=== PATIENT | female | born 1965 | race Caucasian/White ===

== ENCOUNTER 2019-04-18 14:18 | Outpatient (CLI) | payer OTHER, SELFPAY ==
--- NOTE | 2019-04-18 14:29 | MM_ITS ---
WS: [id number] RIGHT DIGITAL MAMMOGRAPHY WITH CAD CLINICAL INFORMATION: 6 MO F/U RT BREAST CYST COMPARISON: August 16, 2018 and multiple prior examinations dating back to June 09, 2017 TECHNIQUE: 5 views of the right breast were obtained. FINDINGS: Scattered fibroglandular densities of the right breast. Again seen is the circumscribed 8 mm nodule i nferior right breast. This is unchanged. Ultrasound is pending. ULTRASOUND BREAST RIGHT TECHNIQUE: Ultrasound right breast focused area of concern. CLINICAL INFORMATION: 6 MO F/U RT BREAST CYST FINDINGS: Again seen is the cluster of cysts and microcysts at the 5:00 position right breast 3 cm from the nip ple. This has a benign appearance and is stable since June 09, 2017. No pathologic lesions to target for biopsy. Recommend returning to annual screening mammography. MM/[place] [id number] IMPRESSION: BI-RADS: 2-Benign FOLLOW UP: 1 Year Follow-up Recommend return to annual screening mammography.
== END 2019-04-18 14:19 | disposition home or self-care (01) ==
LOC: RADSHAW 14:22
PROVIDERS: PCP Nurse Practitioner Family
DX: N60.01 Solitary cyst of right breast (principal)
CPT/HCPCS: 76642; 77065

== ENCOUNTER 2019-09-12 17:33 | Outpatient (CLI) | payer SELFPAY ==
[2019-09-12 20:08] LABS: Alanine Aminotransferase 26 U/L (0-33); Albumin Level 4.3 g/dL (3.5-5.2); Alkaline Phosphatase 74 IU/L (35-105); Anion Gap 19.9 (5-19); Aspartate Amino Transferase 19 U/L (0-32); Blood Urea Nitrogen 18 mg/dL (6-20); Calcium 9.8 mg/dL (8.5-10.5); Carbon Dioxide 21 mmol/L (22-29); Chloride 99 mmol/L (98-107); Globulin 2.2 g/dL (1.3-4.6); Glomerular Filtration Rate 103.8 mL/min (90-130); Glucose 83 mg/dL (65-115); Osmolality Calculated 278 mOsm/kg (285-295); Potassium 3.9 mmol/L (3.5-5.1); Sodium 136 mmol/L (136-145); Total Bilirubin 0.2 mg/dL (0.15-1.2); Total Protein 6.5 g/dL (6.6-8.7)
[2019-09-12 21:58] LABS: Estmated Average Glucose 137; Hemoglobin A1C 6.4 % (4.0-6.0)
== END 2019-09-12 17:34 | disposition home or self-care (01) ==
PROVIDERS: PCP Nurse Practitioner Family; Visit Provider General Practice
DX: E11.9 Type 2 diabetes mellitus without complications (principal)
CPT/HCPCS: 80053; 83036

== ENCOUNTER 2020-12-31 17:36 | Outpatient (CLI) | payer MEDICAID, SELFPAY ==
[2020-12-31 18:36] LABS: Basophils # 0.1 10^3/uL (0.0-0.1); Basophils % 0.5 %; Eosinophils # 0.2 10^3/uL (0.0-0.8); Eosinophils % 1.5 %; Hematocrit 44.1 % (37.0-47.0); Lymphocytes # 4.1 10^3/uL (0.8-4.8); Lymphocytes % 28.4 %; Mean Corpuscular Hemoglobin 33.3 pg (28.0-34.0); Mean Corpuscular Volume 97.8 fl (81-99); Mean Platelet Volume 11.9 fL (7.4-10.4); Monocytes # 0.7 10^3/uL (0.2-0.9); Monocytes % 4.9 %; Neutrophils # 9.18 10^3/uL (1.8-7.7); Neutrophils % 63.9 %; Nucleated Red Blood Cells % 0 %; Platelet Count 229 10^3/cmm (130-400); Red Blood Count 4.51 10^6/uL (4.1-5.3); White Blood Count 14.4 10^3/uL (4.0-10.0)
[2020-12-31 19:00] LABS: Alanine Aminotransferase 38 U/L (0-33); Albumin Level 4.2 g/dL (3.5-5.2); Alkaline Phosphatase 103 IU/L (35-105); Aspartate Amino Transferase 25 U/L (0-32); Blood Urea Nitrogen 13 mg/dL (6-20); Calcium 9.4 mg/dL (8.5-10.5); Carbon Dioxide 20 mmol/L (22-29); Chloride 99 mmol/L (98-107); Chol HDL Ratio 5.24 mg/dL (0.0-4.40); Cholesterol 178 mg/dL (0-200); Globulin 2.2 g/dL (1.3-4.6); Glomerular Filtration Rate 103.4 mL/min (90-130); Glucose 162 mg/dL (65-115); HDL Cholesterol 34 mg/dL (60-100); LDL Cholesterol Calculated 73 mg/dL (50-129); LDL HDL Ratio 2.15 RATIO (0.00-3.22); Osmolality Calculated 282 mOsm/kg (285-295); Sodium 134 mmol/L (136-145); Total Bilirubin 0.2 mg/dL (0.15-1.2); Total Protein 6.4 g/dL (6.6-8.7); Triglycerides 356 mg/dL (0-150)
[2020-12-31 22:14] LABS: Estmated Average Glucose 148; Hemoglobin A1C 6.8 % (4.0-6.0)
== END 2020-12-31 17:37 | disposition home or self-care (01) ==
LOC: LAB 17:36
PROVIDERS: PCP General Practice; Visit Provider General Practice
DX: Z01.89 Encounter for other specified special examinations (principal)
CPT/HCPCS: 80053; 80061; 83036; 85025

== ENCOUNTER → 2021-03-03 08:56 | Outpatient (BNVA) | payer MEDICAID, SELFPAY | PROVIDERS: PCP Family Medicine Adult Medicine; Visit Provider Family Medicine Adult Medicine | DX: E11.69 Type 2 diabetes mellitus with other specified complication (principal); Z13.6 Encounter for screening for cardiovascular disorders; I10 Essential (primary) hypertension; E78.5 Hyperlipidemia, unspecified; E11.621 Type 2 diabetes mellitus with foot ulcer; L97.509 Non-pressure chronic ulcer of other part of unspecified foot with unspecified severity | CPT/HCPCS: 80053; 80061; 83036; 84443; 85025 ==

== ENCOUNTER → 2021-03-04 08:09 | Outpatient (BNVA) | payer MEDICAID, SELFPAY | PROVIDERS: PCP Family Medicine Adult Medicine; Referring Provider Family Medicine Adult Medicine; Visit Provider Podiatrist Foot & Ankle Surgery | DX: E11.621 Type 2 diabetes mellitus with foot ulcer (principal); L97.509 Non-pressure chronic ulcer of other part of unspecified foot with unspecified severity; M77.32 Calcaneal spur, left foot; Z79.4 Long term (current) use of insulin | CPT/HCPCS: 73630 ==

== ENCOUNTER → 2021-06-01 15:17 | Outpatient (BNVA) | payer MEDICAID, SELFPAY | PROVIDERS: PCP Family Medicine Adult Medicine; Visit Provider Family Medicine Adult Medicine | DX: I10 Essential (primary) hypertension (principal); E11.69 Type 2 diabetes mellitus with other specified complication; E78.5 Hyperlipidemia, unspecified; E11.621 Type 2 diabetes mellitus with foot ulcer; L97.509 Non-pressure chronic ulcer of other part of unspecified foot with unspecified severity; J44.9 Chronic obstructive pulmonary disease, unspecified; E11.40 Type 2 diabetes mellitus with diabetic neuropathy, unspecified | CPT/HCPCS: 83036 ==

== ENCOUNTER → 2021-07-20 14:03 | Outpatient (BNVA) | payer MEDICAID, SELFPAY | PROVIDERS: PCP Family Medicine Adult Medicine; Visit Provider Podiatrist Foot & Ankle Surgery | DX: E11.621 Type 2 diabetes mellitus with foot ulcer (principal); L97.521 Non-pressure chronic ulcer of other part of left foot limited to breakdown of skin; E11.40 Type 2 diabetes mellitus with diabetic neuropathy, unspecified; L60.3 Nail dystrophy; M20.11 Hallux valgus (acquired), right foot; M20.12 Hallux valgus (acquired), left foot; M20.41 Other hammer toe(s) (acquired), right foot; M20.42 Other hammer toe(s) (acquired), left foot; Q82.8 Other specified congenital malformations of skin | CPT/HCPCS: 99213; 99214 ==

== ENCOUNTER → 2021-09-08 07:37 | Outpatient (BNVA) | payer MEDICAID, SELFPAY | PROVIDERS: PCP Family Medicine Adult Medicine; Visit Provider Family Medicine Adult Medicine | DX: J44.9 Chronic obstructive pulmonary disease, unspecified (principal); I10 Essential (primary) hypertension; E11.69 Type 2 diabetes mellitus with other specified complication; E78.5 Hyperlipidemia, unspecified; E11.9 Type 2 diabetes mellitus without complications; K21.9 Gastro-esophageal reflux disease without esophagitis; G25.81 Restless legs syndrome | CPT/HCPCS: 80053; 80061; 83036; 83735; 84443; 85025 ==

== ENCOUNTER → 2021-10-19 13:11 | Outpatient (BNVA) | payer MEDICAID, SELFPAY | PROVIDERS: PCP Family Medicine Adult Medicine; Visit Provider Podiatrist Foot & Ankle Surgery | DX: M79.671 Pain in right foot (principal); M79.672 Pain in left foot; E11.40 Type 2 diabetes mellitus with diabetic neuropathy, unspecified; L60.3 Nail dystrophy; M20.11 Hallux valgus (acquired), right foot; M20.12 Hallux valgus (acquired), left foot; M20.41 Other hammer toe(s) (acquired), right foot; M20.42 Other hammer toe(s) (acquired), left foot; Z79.84 Long term (current) use of oral hypoglycemic drugs | CPT/HCPCS: 99214 ==

== ENCOUNTER 2021-12-29 10:27 | Emergency (ER) | payer MEDICAID, SELFPAY ==
[2021-12-29 11:14] VITALS: BP 129/77; PULSE 86; RESP 18; TEMP 36.3; O2SAT 97; BMI 30.8
--- NOTE | 2021-12-29 11:18 | ECG_ITS ---
[facility] Test Date: 2021-12-29 Pat Name: Maribell Hamm Department: Room: Gender: Female Survey Superintendent: : 1965 Requested By: Cassia Adams Order Number: [id number] Grey MD: Shivani Kurtz M.D. Measurements Intervals [place] Rate: 85 P: -23 [place]: 165 QRS: 32 QRSD: 96 T: 54 QT: 357 QTc: 426 Interpretive Statements SINUS RHYTHM SEPTAL MYOCARDIAL INFARCTION , PROBABLY OLD [40+ ms Q WAVE IN V1/V2] No previous ECG available for comparison Electronically Signed On 12-30-2021 12:56:14 CDT by Shivani Kurtz M.D. [email or web address], cancer [id number]
[2021-12-29 12:15] LABS: Basophils # 0.1 10^3/uL (0.0-0.1); Basophils % 0.5 %; Eosinophils # 0.2 10^3/uL (0.0-0.8); Eosinophils % 1.5 %; Hematocrit 45.6 % (37.0-47.0); Hemoglobin 15.4 g/dL (11.5-15.3); Lymphocytes # 4.3 10^3/uL (0.8-4.8); Mean Corpuscular HGB Conc 33.8 g/dL (30.0-36.0); Mean Corpuscular Hemoglobin 32.5 pg (28.0-34.0); Mean Corpuscular Volume 96.2 fl (81-99); Mean Platelet Volume 11.5 fL (7.4-10.4); Monocytes # 0.9 10^3/uL (0.2-0.9); Neutrophils # 9.22 10^3/uL (1.8-7.7); Neutrophils % 62.3 %; Nucleated Red Blood Cells % 0 %; Platelet Count 257 10^3/cmm (130-400); Red Blood Count 4.74 10^6/uL (4.1-5.3); Red Cell Distribution Width 13.2 % (12.1-15.1); White Blood Count 14.8 10^3/uL (4.0-10.0)
--- NOTE | 2021-12-29 12:20 | PC.NURSE ---
Patient rounded on in waiting room. Patient denies changes and remains stable. Patient has no further needs at this time.
[2021-12-29 12:34] LABS: Lactate (Lactic Acid level) 1.8 mmol/L (0.5-2.2)
[2021-12-29 12:40] LABS: Alanine Aminotransferase 39 U/L (0-33); Alkaline Phosphatase 109 U/L (35-105); Aspartate Amino Transferase 21 U/L (0-32); Blood Urea Nitrogen 11 mg/dL (6-20); Calcium 9.8 mg/dL (8.5-10.5); Carbon Dioxide 23 mmol/L (22-29); Chloride 102 mmol/L (98-107); Globulin 3.1 g/dL (1.3-4.6); Glucose 172 mg/dL (65-115); Lipase 49 U/L (13-60); Osmolality Calculated 287 mOsm/kg (285-295); Sodium 137 mmol/L (136-145); Total Bilirubin 0.2 mg/dL (0.15-1.2); Total Protein 7.1 g/dL (6.6-8.7)
[2021-12-29 12:41] LABS: Anion Gap 16.2 (5-19); Potassium 4.2 mmol/L (3.5-5.1)
[2021-12-29 13:47] LABS: Add Urine Microscopic? YES; Bilirubin Urine Neg (Negative); Blood Urine Neg (Negative); Glucose Urine UA Norm (Normal); Ketones Urine Negative (Negative); Leukocyte Esterase Urine Trace (Negative); Nitrate Urine Negative (Negative); Protein Urine Neg (Negative); RBC Urine 0-4 /hpf (0-2); Specific Gravity, Urine 1.015 (1.005-1.030); Sulfosalicylic Acid Urine Negative (Negative); Urine Appearance Clear (CLEAR); Urine Color Yellow (Yellow); Urobilinogen Urine Norm (Negative); WBC Urine 0-4 /hpf (0-5); pH Urine 6 (5-7)
[2021-12-29 13:48] LABS: Bacteria Urine 1+ /hpf; Mucus Urine 2+ /hpf
--- NOTE | 2021-12-29 15:16 | US_ITS ---
WS: [id number] ULTRASOUND ABDOMEN LIMITED CLINICAL INFORMATION: RUQ abdominal pain, n/v/d, worsens after eating COMPARISON: None. FINDINGS: Liver Size: Enlarged Craniocaudal length: 17.4 cm. Echogenicity: Coarse Surface nodularity: None. Mass (size and location): None. Bile ducts Intrahepatic ducts: Normal. Common bile duct diameter: 1.5 cm. Gallbladder Prior cholecystectomy. Pancreas Pancreas is partially obscured by bowel gas. Echogenic pancreas nonspecific but can be seen with panc reatitis or fatty replacement. Right kidney: Normal. Hydronephrosis: None. Size: 11.3 cm x 5.3 cm x 4.8 cm. Abdominal aorta and IVC Visualized portions are normal. Ascites: None. US/US gall bladder [id number] IMPRESSION: 1. Hepatomegaly with diffuse fatty infiltration. 2. Partially obscured Echogenic pancreas is nonspecific but can be seen with p ancreatitis or fatty replacement. Recommend correlation with pancreatic functio n studies. 3. Prior remote cholecystectomy. 4. Prominent common bile duct measuring 15 mm. No visualized proximal choledoc holithiasis. This can be followed up with MRCP if clinical concern for biliary obstruction. 5. No hydronephrosis in RIGHT kidney.
--- NOTE | 2021-12-29 15:23 | ED_ITS ---
Documented by User: CYRIL Díaz 12/30/21 07:10 HPI - Abdominal Pain General: Chief Complaint: Abdominal Pain Stated Complaint: pain in stomach Time Seen by Provider: 12/29/21 15:02 History of Present Illness: Patient is a 56-year-old female comes to the ED with abdominal pain. Past surgical history of cholecystectomy approximately 14 years ago. Symptoms started approximately 2 weeks ago. Abdominal pain is located in the right upper quadrant of her abdomen. She currently rates her abdominal pain a 5 out of 10. Symptoms and pain worsen when she eats. She endorses having some episodes of nausea/vomiting and diarrhea after she eats. Denies any fevers, chills, blood in the stool, dysuria or hematuria. Associated Symptoms: Reports diarrhea, nausea and vomiting; Denies chills, constipation, dysuria, fever(s), hematochezia and hematuria Review of Systems Const: Denies: fever(s), chills or fatigue Eyes: Denies: change in vision or eye discomfort ENMT: Denies: throat pain, odynophagia, nasal discharge or nasal congestion Card: Denies: chest pain, palpitations, edema, swelling of feet/ankles, dyspnea on exertion or orthopnea Resp: Denies: dyspnea, productive cough or non-productive cough GI: Reports: abdominal pain, nausea, vomiting and diarrhea; Denies: constipation or hematochezia : Denies: flank pain, dysuria or hematuria Musc: Denies: neck pain, back pain or extremity swelling Skin/Breast: Denies: rash or new lesions Neuro: Denies: headache(s), numbness in extremities or weakness in extremities PFSH ED PFSH: Medical History Chronic GERD COPD (chronic obstructive pulmonary disease) Diabetes type 2, controlled Diabetic foot ulcer Diabetic neuropathy Dyslipidemia associated with type 2 diabetes mellitus Hypertension Neck and shoulder pain Restless leg syndrome Smoker Surgical History History of cholecystectomy History of partial hysterectomy Hx of tonsillectomy Social History Smoking and tobacco status: current every day smoker Alcohol intake: never Physical Exam Const: COMMON NORMALS: patient oriented x3 and alert GENERAL APPEARANCE: cooperative and comfortable HENMT: COMMON NORMALS: normocephalic HEAD & SCALP: normocephalic MOUTH: Normal oral and palatal mucosa present THROAT: posterior oropharynx normal and uvula midline Neck/C-Spine: COMMON NORMALS: supple GENERAL: Yes normal visual inspection Resp: COMMON NORMALS: normal respiratory effort, No retractions, No use of accessory muscles and clear to auscultation bilaterally AUSCULTATION: clear to auscultation bilaterally Cardio: COMMON NORMALS: regular rate, regular rhythm, S1 normal heart sound present, S2 normal heart sound present, No gallops present (Cardio), No clicks present (Cardio), No murmurs present (Cardio) and Peripheral pulses 2+ throug hout RATE: regular rate RHYTHM: regular rhythm HEART SOUNDS: S1 normal heart sound present and S2 normal heart sound present PERIPHERAL PULSES: Peripheral pulses 2+ throughout GI: COMMON NORMALS: Normal to inspection, nondistended, normoactive bowel sounds present, Soft to palpation and no masses PALPATION: Yes Soft to palpation and Yes Tenderness to palpation present (GI) Details: RUQ : COMMON NORMALS: Yes no CVA tenderness BLADDER/KIDNEY EXAM: Yes no CVA tenderness Back/Pelvis: COMMON NORMALS: no CVA tenderness Extremity: COMMON NORMALS: normal to inspection Neuro: COMMON NORMALS: patient oriented x3 SENSORIUM/ORIENTATION: Yes alert GAIT: Yes Normal gait present Skin: GENERAL SKIN EXAM: dry skin Course 2 Vital Signs: Vital signs: Vital Signs Temperature 97.4 F L 12/29/21 11:14 Pulse Rate 82 12/29/21 17:19 Respiratory Rate 16 12/29/21 17:19 Blood Pressure 151/84 12/29/21 17:19 Pulse Oximetry 97 12/29/21 17:19 Oxygen Delivery Me thod 12/29/21 17:19 MDM - Abdominal Pain Lab Data I reviewed the patient's lab results. : 12/29/21 11:44 12/29/21 11:44 Labs/Radiology: Radiology Impressions Gallbladder Ultrasound 12/29/21 15:16 IMPRESSION: 1. Hepatomegaly with diffuse fatty infiltration. 2. Partially obscured Echogenic pancreas is nonspecific but can be seen with pancreatitis or fatty replacement. Recommend correlation with pancreatic function studies. 3. Prior remote cholecystectomy. 4. Prominent common bile duct measuring 15 mm. No visualized proximal choledocholithiasis. This can be followed up with MRCP if clinical concern for biliary obstruction. 5. No hydronephrosis in RIGHT kidney. Laboratory Results WBC 14.8 10^3/uL (4.0-10.0) H 12/29/21 11:44 RBC 4.74 10^6/uL (4.1-5.3) 12/29/21 11:44 Hgb 15.4 g/dL (11.5-15.3) H 12/29/21 11:44 Hct 45.6 % (37.0-47.0) 12/29/21 11:44 MCV 96.2 fl (81-99) 12/29/21 11:44 MCH 32.5 pg (28.0-34.0) 12/29/21 11:44 MCHC 33.8 g/dL (30.0-36.0) 12/29/21 11:44 RDW 13.2 % (12.1-15.1) 12/29/21 11:44 Plt Count 257 10^3/cmm (130-400) 12/29/21 11:44 MPV 11.5 fL (7.4-10.4) H 12/29/21 11:44 Neut % (Auto) 62.3 % 12/29/21 11:44 Lymph % (Auto) 29.0 % 12/29/21 11:44 [place] % (Auto) 6.0 % 12/29/21 11:44 Eos % (Auto) 1.5 % 12/29/21 11:44 Baso % (Auto) 0.5 % 12/29/21 11:44 Neut # (Auto) 9.22 10^3/uL (1.8-7.7) H 12/29/21 11:44 Lymph # (Auto) 4.3 10^3/uL (0.8-4.8) 12/29/21 11:44 [place] # (Auto) 0.9 10^3/uL (0.2-0.9) 12/29/21 11:44 Eos # (Auto) 0.2 10^3/uL (0.0-0.8) 12/29/21 11:44 Baso # (Auto) 0.1 10^3/uL (0.0-0.1) 12/29/21 11:44 Nucleated RBC % (auto) 0 % 12/29/21 11:44 Nucleated RBCs # 0.0 /100WBC 12/29/21 11:44 Sodium 137 mmol/L (136-145) 12/29/21 11:44 Potassium 4.2 mmol/L (3.5-5.1) 12/29/21 11:44 Chloride 102 mmol/L (98-107) 12/29/21 11:44 Carbon Dioxide 23 mmol/L (22-29) 12/29/21 11:44 Anion Gap 16.2 (5-19) 12/29/21 11:44 BUN 11 mg/dL (6-20) 12/29/21 11:44 Creatinine 0.6 mg/dL (0.5-0.9) 12/29/21 11:44 GFR Calculation 103.0 mL/min (90-130) 12/29/21 11:44 Glucose 172 mg/dL (65-115) H 12/29/21 11:44 Calculated Osmolality 287 mOsm/kg (285-295) 12/29/21 11:44 Lactate 1.8 mmol/L (0.5-2.2) 12/29/21 11:44 Calcium 9.8 mg/dL (8.5-10.5) 12/29/21 11:44 Total Bilirubin 0.2 mg/dL (0.15-1.2) 12/29/21 11:44 AST 21 U/L (0-32) 12/29/21 11:44 ALT 39 U/L (0-33) H 12/29/21 11:44 Alkaline Phosphatase 109 U/L (35-105) H 12/29/21 11:44 Total Protein 7.1 g/dL (6.6-8.7) 12/29/21 11:44 Albumin 4.0 g/dL (3.5-5.2) 12/29/21 11:44 Globulin 3.1 g/dL (1.3-4.6) 12/29/21 11:44 Lipase 49 U/L (13-60) 12/29/21 11:44 Urine Color Yellow (Yellow) 12/29/21 Unknown Urine Appearance Clear (CLEAR) 12/29/21 Unknown Urine pH 6 (5-7) 12/29/21 Unknown Ur Specific [place] 1.015 (1.005-1.030) 12/29/21 Unknown Urine Protein Neg (Negative) 12/29/21 Unknown Urine Glucose (UA) Norm (Normal) 12/29/21 Unknown Urine Ketones Negative (Negative) 12/29/21 Unknown Urine Blood Neg (Negative) 12/29/21 Unknown Urine Nitrate Negative (Negative) 12/29/21 Unknown Urine Bilirubin Neg (Negative) 12/29/21 Unknown Prot Sulfosalicylic Acd Negative (Negative) 12/29/21 Unknown Urine Urobilinogen Norm mg/dL (Negative) 12/29/21 Unknown Ur Leukocyte Esterase Trace (Negative) H 12/29/21 Unknown Urine RBC 0-4 /hpf (0-2) H 12/29/21 Unknown Urine WBC 0-4 /hpf (0-5) H 12/29/21 Unknown Ur Squamous Epith Cells 5-10 /hpf (0-5) H 12/29/21 Unknown Amorphous Sediment Not Reportable 12/29/21 Unknown Urine Bacteria 1+ /hpf (NONE) H 12/29/21 Unknown Urine Mucus 2+ /hpf 12/29/21 Unknown Discharge Plan Discharge Patient Disposition: Home Clinical Impression: Abdominal pain Qualifiers: Abdominal location: right upper quadrant Qualified Code(s): R10.11 - Right upper quadrant pain Condition: Stable Prescriptions: New ondansetron 4 mg tablet,disintegrating 4 mg PO Q8H PRN (Reason: nausea and vomiting) Qty: 15 0RF No Action (DME) Diabetic shoes See Rx Instructions .ROUTE .MEDSUPPLY Qty: 1 0RF Rx Instructions: With 3 pairs of inserts made by [employer] ropinirole 0.5 mg tablet 0.5 mg PO .qhs Qty: 30 2RF cetirizine [All Day Allergy (cetirizine)] 10 mg tablet 10 mg PO DAILY PRN celecoxib 200 mg capsule 200 mg PO BID PRN (Reason: pain) Qty: 60 0RF budesonide-formoterol [Symbicort] 160-4.5 mcg/actuation HFA aerosol inhaler 2 puff inhalation BID Qty: 10.2 1RF cyclobenzaprine 10 mg tablet 10 mg PO TID Qty: 90 3RF albuterol sulfate 90 mcg/actuation HFA aerosol inhaler 2 puff inhalation Q6H PRN (Reason: shortness of breath or wheezing) Qty: 8.5 2RF metformin 500 mg tablet 500 mg PO BID Qty: 60 5RF pregabalin 25 mg capsule 25 mg PO BID Qty: 60 2RF diltiazem HCl 60 mg tablet See Rx Instructions .ROUTE .COMPLEX Qty: 90 1RF Dose Instruction: TAKE ONE TABLET BY MOUTH THREE TIMES A DAY FOR THIRTY DAYS Rx Instructions: TAKE ONE TABLET BY MOUTH THREE TIMES A DAY FOR THIRTY DAYS lisinopril 20 mg tablet See Rx Instructions .ROUTE .COMPLEX Qty: 90 1RF Dose Instruction: TAKE ONE TABLET BY MOUTH EVERY DAY Rx Instructions: TAKE ONE TABLET BY MOUTH EVERY DAY atorvastatin 40 mg tablet See Rx Instructions .ROUTE .COMPLEX Qty: 90 0RF Dose Instruction: TAKE ONE TABLET BY MOUTH EVERY DAY Rx Instructions: TAKE ONE TABLET BY MOUTH EVERY DAY Discharge Orders: Discharge ED (Routine); Ordered 12/29/21 Ordered By: Bart Holt Referrals: Cuco Viera MD [Primary Care Provider] - Discharge Diet: Regular Discharge Activity: Increase activity as tolerated Patient Instructions: Abdominal Pain (ED), Opioid Safety Activity Restrictions/Additional Instructions: Follow-up with medical provider as directed. Take medications as prescribed. Return to the ER or your medical provider if condition worsens. Please read and understand discharge instructions. Thank you for choosing [facility] for your healthcare needs today. Please realize this is an emergency room and that we are providing you with a medical screening exam and this may not be complete and all inclusive of all the testing and or work up that you may need to determine your ailment or severity of your illness. It is very important that you follow up as instructed or that you return to the Emergency Department should you have concerns or if your condition changes or worsens in any way. Sign Out Sign Out Data: Patient Sign Out occurred on 12/29/21 at 17:27. Patient's care was discussed, and care was transferred from to Bart Holt. Post-Handoff Eval: Patient resting well. Reviewed ultrasound report and recommended follow-up. Coding Level of Care Code ED Retail Coverage Merchandiser Lead for Chg Fwd Exam Comprehensive Documented by User: JESENIA Escobedo 12/29/21 17:33 HPI - Abdominal Pain General: Chief Complaint: Abdominal Pain Stated Complaint: pain in stomach Time Seen by Provider: 12/29/21 15:02 PFSH ED PFSH: Medical History Chronic GERD COPD (chronic obstructive pulmonary disease) Diabetes type 2, controlled Diabetic foot ulcer Diabetic neuropathy Dyslipidemia associated with type 2 diabetes mellitus Hypertension Neck and shoulder pain Restless leg syndrome Smoker Surgical History History of cholecystectomy History of partial hysterectomy Hx of tonsillectomy Social History Smoking and tobacco status: current every day smoker Alcohol intake: never Course Vital Signs: Vital signs: Vital Signs Temperature 97.4 F L 12/29/21 11:14 Pulse Rate 82 12/29/21 17:19 Respiratory Rate 16 12/29/21 17:19 Blood Pressure 151/84 12/29/21 17:19 Pulse Oximetry 97 12/29/21 17:19 Oxygen Delivery Me thod 12/29/21 17:19 MDM - Abdominal Pain Medical Decision Making Patient was seen today by Efra Thornton PA-C. We were waiting ultrasound report that discusses a large common bile duct but no signs of biliary obstruction. This was reviewed with Dr. Benitez who recommended patient follow-up with primary care for abdominal pain. Lab Data : 12/29/21 11:44 12/29/21 11:44 Labs/Radiology: Radiology Impressions Gallbladder Ultrasound 12/29/21 15:16 IMPRESSION: 1. Hepatomegaly with diffuse fatty infiltration. 2. Partially obscured Echogenic pancreas is nonspecific but can be seen with pancreatitis or fatty replacement. Recommend correlation with pancreatic function studies. 3. Prior remote cholecystectomy. 4. Prominent common bile duct measuring 15 mm. No visualized proximal choledocholithiasis. This can be followed up with MRCP if clinical concern for biliary obstruction. 5. No hydronephrosis in RIGHT kidney. Laboratory Results WBC 14.8 10^3/uL (4.0-10.0) H 12/29/21 11:44 RBC 4.74 10^6/uL (4.1-5.3) 12/29/21 11:44 Hgb 15.4 g/dL (11.5-15.3) H 12/29/21 11:44 Hct 45.6 % (37.0-47.0) 12/29/21 11:44 MCV 96.2 fl (81-99) 12/29/21 11:44 MCH 32.5 pg (28.0-34.0) 12/29/21 11:44 MCHC 33.8 g/dL (30.0-36.0) 12/29/21 11:44 RDW 13.2 % (12.1-15.1) 12/29/21 11:44 Plt Count 257 10^3/cmm (130-400) 12/29/21 11:44 MPV 11.5 fL (7.4-10.4) H 12/29/21 11:44 Neut % (Auto) 62.3 % 12/29/21 11:44 Lymph % (Auto) 29.0 % 12/29/21 11:44 [place] % (Auto) 6.0 % 12/29/21 11:44 Eos % (Auto) 1.5 % 12/29/21 11:44 Baso % (Auto) 0.5 % 12/29/21 11:44 Neut # (Auto) 9.22 10^3/uL (1.8-7.7) H 12/29/21 11:44 Lymph # (Auto) 4.3 10^3/uL (0.8-4.8) 12/29/21 11:44 [place] # (Auto) 0.9 10^3/uL (0.2-0.9) 12/29/21 11:44 Eos # (Auto) 0.2 10^3/uL (0.0-0.8) 12/29/21 11:44 Baso # (Auto) 0.1 10^3/uL (0.0-0.1) 12/29/21 11:44 Nucleated RBC % (auto) 0 % 12/29/21 11:44 Nucleated RBCs # 0.0 /100WBC 12/29/21 11:44 Sodium 137 mmol/L (136-145) 12/29/21 11:44 Potassium 4.2 mmol/L (3.5-5.1) 12/29/21 11:44 Chloride 102 mmol/L (98-107) 12/29/21 11:44 Carbon Dioxide 23 mmol/L (22-29) 12/29/21 11:44 Anion Gap 16.2 (5-19) 12/29/21 11:44 BUN 11 mg/dL (6-20) 12/29/21 11:44 Creatinine 0.6 mg/dL (0.5-0.9) 12/29/21 11:44 GFR Calculation 103.0 mL/min (90-130) 12/29/21 11:44 Glucose 172 mg/dL (65-115) H 12/29/21 11:44 Calculated Osmolality 287 mOsm/kg (285-295) 12/29/21 11:44 Lactate 1.8 mmol/L (0.5-2.2) 12/29/21 11:44 Calcium 9.8 mg/dL (8.5-10.5) 12/29/21 11:44 Total Bilirubin 0.2 mg/dL (0.15-1.2) 12/29/21 11:44 AST 21 U/L (0-32) 12/29/21 11:44 ALT 39 U/L (0-33) H 12/29/21 11:44 Alkaline Phosphatase 109 U/L (35-105) H 12/29/21 11:44 Total Protein 7.1 g/dL (6.6-8.7) 12/29/21 11:44 Albumin 4.0 g/dL (3.5-5.2) 12/29/21 11:44 Globulin 3.1 g/dL (1.3-4.6) 12/29/21 11:44 Lipase 49 U/L (13-60) 12/29/21 11:44 Urine Color Yellow (Yellow) 12/29/21 Unknown Urine Appearance Clear (CLEAR) 12/29/21 Unknown Urine pH 6 (5-7) 12/29/21 Unknown Ur Specific [place] 1.015 (1.005-1.030) 12/29/21 Unknown Urine Protein Neg (Negative) 12/29/21 Unknown Urine Glucose (UA) Norm (Normal) 12/29/21 Unknown Urine Ketones Negative (Negative) 12/29/21 Unknown Urine Blood Neg (Negative) 12/29/21 Unknown Urine Nitrate Negative (Negative) 12/29/21 Unknown Urine Bilirubin Neg (Negative) 12/29/21 Unknown Prot Sulfosalicylic Acd Negative (Negative) 12/29/21 Unknown Urine Urobilinogen Norm mg/dL (Negative) 12/29/21 Unknown Ur Leukocyte Esterase Trace (Negative) H 12/29/21 Unknown Urine RBC 0-4 /hpf (0-2) H 12/29/21 Unknown Urine WBC 0-4 /hpf (0-5) H 12/29/21 Unknown Ur Squamous Epith Cells 5-10 /hpf (0-5) H 12/29/21 Unknown Amorphous Sediment Not Reportable 12/29/21 Unknown Urine Bacteria 1+ /hpf (NONE) H 12/29/21 Unknown Urine Mucus 2+ /hpf 12/29/21 Unknown Discharge Plan Discharge Patient Disposition: Home Clinical Impression: Abdominal pain Qualifiers: Abdominal location: right upper quadrant Qualified Code(s): R10.11 - Right upper quadrant pain Condition: Stable Prescriptions: New ondansetron 4 mg tablet,disintegrating 4 mg PO Q8H PRN (Reason: nausea and vomiting) Qty: 15 0RF No Action (DME) Diabetic shoes See Rx Instructions .ROUTE .MEDSUPPLY Qty: 1 0RF Rx Instructions: With 3 pairs of inserts made by [employer] ropinirole 0.5 mg tablet 0.5 mg PO .qhs Qty: 30 2RF cetirizine [All Day Allergy (cetirizine)] 10 mg tablet 10 mg PO DAILY PRN celecoxib 200 mg capsule 200 mg PO BID PRN (Reason: pain) Qty: 60 0RF budesonide-formoterol [Symbicort] 160-4.5 mcg/actuation HFA aerosol inhaler 2 puff inhalation BID Qty: 10.2 1RF cyclobenzaprine 10 mg tablet 10 mg PO TID Qty: 90 3RF albuterol sulfate 90 mcg/actuation HFA aerosol inhaler 2 puff inhalation Q6H PRN (Reason: shortness of breath or wheezing) Qty: 8.5 2RF metformin 500 mg tablet 500 mg PO BID Qty: 60 5RF pregabalin 25 mg capsule 25 mg PO BID Qty: 60 2RF diltiazem HCl 60 mg tablet See Rx Instructions .ROUTE .COMPLEX Qty: 90 1RF Dose Instruction: TAKE ONE TABLET BY MOUTH THREE TIMES A DAY FOR THIRTY DAYS Rx Instructions: TAKE ONE TABLET BY MOUTH THREE TIMES A DAY FOR THIRTY DAYS lisinopril 20 mg tablet See Rx Instructions .ROUTE .COMPLEX Qty: 90 1RF Dose Instruction: TAKE ONE TABLET BY MOUTH EVERY DAY Rx Instructions: TAKE ONE TABLET BY MOUTH EVERY DAY atorvastatin 40 mg tablet See Rx Instructions .ROUTE .COMPLEX Qty: 90 0RF Dose Instruction: TAKE ONE TABLET BY MOUTH EVERY DAY Rx Instructions: TAKE ONE TABLET BY MOUTH EVERY DAY Discharge Orders: Discharge ED (Routine); Ordered 12/29/21 Ordered By: Bart Holt Referrals: Cuco Viera MD [Primary Care Provider] - Discharge Diet: Regular Discharge Activity: Increase activity as tolerated Patient Instructions: Abdominal Pain (ED), Opioid Safety Activity Restrictions/Additional Instructions: Follow-up with medical provider as directed. Take medications as prescribed. Return to the ER or your medical provider if condition worsens. Please read and understand discharge instructions. Thank you for choosing [facility] for your healthcare needs today. Please realize this is an emergency room and that we are providing you with a medical screening exam and this may not be complete and all inclusive of all the testing and or work up that you may need to determine your ailment or severity of your illness. It is very important that you follow up as instructed or that you return to the Emergency Department should you have concerns or if your condition changes or worsens in any way. Sign Out Sign Out Data: Patient Sign Out occurred on 12/29/21 at 17:27. Patient's care was discussed, and care was transferred from to Bart Holt. Post-Handoff Eval: Patient resting well. Reviewed ultrasound report and recommended follow-up. Coding Level of Care Code ED Retail Coverage Merchandiser Lead for Chg Fwd Exam Comprehensive Documented by User: Tomi Benitez DO 12/30/21 09:34 HPI - Abdominal Pain General: Chief Complaint: Abdominal Pain Stated Complaint: pain in stomach Time Seen by Provider: 12/29/21 15:02 [facility] ED PFSH: Medical History Chronic GERD COPD (chronic obstructive pulmonary disease) Diabetes type 2, controlled Diabetic foot ulcer Diabetic neuropathy Dyslipidemia associated with type 2 diabetes mellitus Hypertension Neck and shoulder pain Restless leg syndrome Smoker Surgical History History of cholecystectomy History of partial hysterectomy Hx of tonsillectomy Social History Smoking and tobacco status: current every day smoker Alcohol intake: never Course Vital Signs: Vital signs: Vital Signs Temperature 97.4 F L 12/29/21 11:14 Pulse Rate 82 12/29/21 17:19 Respiratory Rate 16 12/29/21 17:19 Blood Pressure 151/84 12/29/21 17:19 Pulse Oximetry 97 12/29/21 17:19 Oxygen Delivery Me thod 12/29/21 17:19 MDM - Abdominal Pain Medical Decision Making Patient was seen today by Efra Thornton PA-C. We were waiting ultrasound report that discusses a large common bile duct but no signs of biliary obstruction. This was reviewed with Dr. Benitez who recommended patient follow-up with primary care for abdominal pain. Chart reviewed and patient discussed with midlevel. Agree with assessment and plan. Lab Data : 12/29/21 11:44 12/29/21 11:44 Labs/Radiology: Radiology Impressions Gallbladder Ultrasound 12/29/21 15:16
[2021-12-29] MEDS: ondansetron 2 mg/ML SDV 2 mL 4 MG IM (16:35)
[2021-12-29 16:36] VITALS: RESP 17
[2021-12-29] MEDS: morphine 4 mg/mL SDV 1 mL IM (16:36)
[2021-12-29 17:19] VITALS: BP 151/84; PULSE 82; RESP 16; O2SAT 97
== END 2021-12-29 17:41 | disposition home or self-care (01) ==
PROVIDERS: Emergency Medicine; Emergency Provider Nurse Practitioner Family; PCP Family Medicine Adult Medicine
DX: R10.11 Right upper quadrant pain (principal); Z79.84 Long term (current) use of oral hypoglycemic drugs; J44.9 Chronic obstructive pulmonary disease, unspecified; E11.9 Type 2 diabetes mellitus without complications; E78.5 Hyperlipidemia, unspecified; F17.210 Nicotine dependence, cigarettes, uncomplicated
CPT/HCPCS: 36415; 76705; 80053; 81001; 83605; 83690; 85025; 93005; 96372; 99285; J2270; J2405

== ENCOUNTER → 2022-05-17 11:43 | Outpatient (BNVA) | payer MEDICAID, SELFPAY | PROVIDERS: PCP Family Medicine Adult Medicine; Visit Provider Family Medicine Adult Medicine | DX: E11.9 Type 2 diabetes mellitus without complications (principal); E11.69 Type 2 diabetes mellitus with other specified complication; E78.5 Hyperlipidemia, unspecified; K21.9 Gastro-esophageal reflux disease without esophagitis; I10 Essential (primary) hypertension; E11.40 Type 2 diabetes mellitus with diabetic neuropathy, unspecified | CPT/HCPCS: 80053; 80061; 83036 ==

== ENCOUNTER → 2022-09-29 08:02 | Outpatient (BNVA) | payer MEDICAID, SELFPAY | PROVIDERS: PCP Family Medicine Adult Medicine; Visit Provider Family Medicine Adult Medicine | DX: E11.9 Type 2 diabetes mellitus without complications (principal); I10 Essential (primary) hypertension; E11.40 Type 2 diabetes mellitus with diabetic neuropathy, unspecified | CPT/HCPCS: 80053; 80061; 83036; 83721 ==

== ENCOUNTER → 2022-12-20 11:16 | Outpatient (BNVA) | payer MEDICAID, SELFPAY | PROVIDERS: PCP Family Medicine Adult Medicine; Visit Provider Podiatrist Foot & Ankle Surgery | DX: E11.40 Type 2 diabetes mellitus with diabetic neuropathy, unspecified; L60.3 Nail dystrophy; L84 Corns and callosities; S90.32XA Contusion of left foot, initial encounter; W17.89XA Other fall from one level to another, initial encounter; M21.611 Bunion of right foot; M21.612 Bunion of left foot; M21.41 Flat foot [pes planus] (acquired), right foot; M21.42 Flat foot [pes planus] (acquired), left foot; Z79.84 Long term (current) use of oral hypoglycemic drugs | CPT/HCPCS: 73630 ==

== ENCOUNTER 2023-01-10 13:58 | Emergency (ER) | payer MEDICAID, SELFPAY ==
[2023-01-10 14:04] VITALS: BP 143/78; PULSE 88; RESP 16; TEMP 36.4; O2SAT 96; BMI 28.8
[2023-01-10 14:20] LABS: Basophils # 0.1 10^3/uL (0.0-0.1); Basophils % 0.6 %; Eosinophils # 0.4 10^3/uL (0.0-0.8); Eosinophils % 2.9 %; Hematocrit 42.3 % (36-47); Lymphocytes # 4.5 10^3/uL (0.8-4.8); Lymphocytes % 35.4 %; Mean Corpuscular Volume 96.8 fl (85-98); Mean Platelet Volume 10.8 fL (7.4-10.4); Monocytes # 0.7 10^3/uL (0.2-0.9); Monocytes % 5.6 %; Neutrophils # 6.88 10^3/uL (1.8-7.7); Neutrophils % 54.7 %; Nucleated Red Blood Cells % 0 %; Platelet Count 267 10^3/cmm (157-399); Red Blood Count 4.37 10^6/uL (3.85-5.65); Red Cell Distribution Width 13.2 % (12.1-15.1)
[2023-01-10 14:42] LABS: Slide Review Slide Review Perform
[2023-01-10 14:49] LABS: Alanine Aminotransferase 32 U/L (0-33); Albumin Level 4.4 g/dL (3.5-5.2); Alkaline Phosphatase 75 U/L (35-105); Anion Gap 16.1 (5-19); Aspartate Amino Transferase 21 U/L (0-32); Blood Urea Nitrogen 15 mg/dL (6-20); Calcium 9.2 mg/dL (8.5-10.5); Carbon Dioxide 21 mmol/L (22-29); Chloride 103 mmol/L (98-107); Globulin 2.3 g/dL (1.3-4.6); Glomerular Filtration Rate 73.7 mL/min (90-130); Glucose 188 mg/dL (65-115); Osmolality Calculated 288 mOsm/kg (285-295); Potassium 4.1 mmol/L (3.5-5.1); Sodium 136 mmol/L (136-145); Total Bilirubin 0.2 mg/dL (0.15-1.2); Total Protein 6.7 g/dL (6.6-8.7)
--- NOTE | 2023-01-10 15:12 | W.ED.WEAKNES ---
HPI - Weakness General: Chief complaint: Weakness Stated complaint: weakness Time Seen by Provider: 01/10/23 15:12 Source: patient Mode of arrival: ambulatory History of Present Illness: 49-year-old female complains of bilateral numbness in her legs has been going on for several weeks. At one point she fell she was evaluated there is no fracture she complained at tailbone pain. She denies any recurrent falls since then. No saddle paresthesias no urinary retention or fecal incontinence. MD Complaint: generalized weakness Associated symptoms: Denies chest pain, chills, dysuria or fever(s) Review of Systems Const: Denies: fever(s) or chills Card: Denies: chest pain Resp: Denies: dyspnea GI: Denies: abdominal pain : Denies: dysuria, urinary frequency or urinary urgency Musc: Denies: neck pain or back pain Skin/Breast: Denies: rash PFSH ED PFSH: Medical History Bilateral cataracts Chronic GERD Chronic pain disorder Neck back and shoulder pain COPD (chronic obstructive pulmonary disease) Diabetes type 2, controlled Diabetic foot ulcer Diabetic neuropathy Dyslipidemia associated with type 2 diabetes mellitus Hypertension Restless leg syndrome Smoker Surgical History History of cholecystectomy History of partial hysterectomy Hx of tonsillectomy Social History Smoking and tobacco/nicotine status: current every day tobacco/nicotine user Alcohol intake: never Substance/Drug Use: never Physical Exam Const: GENERAL APPEARANCE: cooperative and comfortable ORIENTATION/CONSCIOUSNESS: Yes awake, Yes oriented to person, Yes oriented to place and Yes oriented to time HENMT: COMMON NORMALS: normocephalic, atraumatic and hearing grossly normal bilaterally HEAD & SCALP: normocephalic and atraumatic Resp: COMMON NORMALS: normal respiratory effort, No retractions, No use of accessory muscles and clear to auscultation bilaterally AUSCULTATION: clear to auscultation bilaterally Cardio: COMMON NORMALS: regular rate, regular rhythm and No murmurs present (Cardio) RATE: regular rate RHYTHM: regular rhythm GI: COMMON NORMALS: Soft to palpation and No hepatosplenomegaly present AUSCULTATION: Yes normoactive bowel sounds PALPATION: Yes Soft to palpation, No Tenderness to palpation present (GI), No Guarding due to palpation present (GI) and Yes No hepatosplenomegaly present Extremity: COMMON NORMALS: normal to inspection, capillary refill normal, no clubbing, cyanosis or edema, no calf tenderness and no pedal edema Neuro: SENSORIUM/ORIENTATION: Yes oriented to person, Yes oriented to place and Yes oriented to time OTHER: Straight leg raising negative sensation lower extremities normal neurovascularly intact lower extremities deep tendon reflexes +2/4 patellar tendon dorsum plantar flex strength 5 of 5 Skin: COMMON NORMALS: no rashes or lesions noted GENERAL SKIN EXAM: no rashes or lesions noted Course Vital Signs: Vital signs: Vital Signs Temperature 97.6 F 01/10/23 14:04 Pulse Rate 88 01/10/23 14:04 Respiratory Rate 16 01/10/23 14:04 Blood Pressure 143/78 01/10/23 14:04 Pulse Oximetry 96 01/10/23 14:04 Oxygen Delivery Me thod Room Air 01/10/23 14:04 MDM - Weakness Medical Decision Making No red flag symptoms exam is normal. Discharge patient home I think some of this is diabetic peripheral neuropathy. Prednisone taper and increase her pregabalin follow-up with primary care Medical Records I reviewed the patient's medical records. Lab Data I reviewed the patient's lab results. 01/10/23 14:12 01/10/23 14:12 Laboratory Results WBC 12.60 10^3/uL (3.29-11.43) H 01/10/23 14:12 RBC 4.37 10^6/uL (3.85-5.65) 01/10/23 14:12 Hgb 14.40 g/dL (11.27-16.99) 01/10/23 14:12 Hct 42.3 % (36-47) 01/10/23 14:12 MCV 96.8 fl (85-98) 01/10/23 14:12 MCH 33.0 pg (27-33) 01/10/23 14:12 MCHC 34.0 g/dL (30-55) 01/10/23 14:12 RDW 13.2 % (12.1-15.1) 01/10/23 14:12 Plt Count 267 10^3/cmm (157-399) 01/10/23 14:12 MPV 10.8 fL (7.4-10.4) H 01/10/23 14:12 Neut % (Auto) 54.7 % 01/10/23 14:12 Lymph % (Auto) 35.4 % 01/10/23 14:12 [place] % (Auto) 5.6 % 01/10/23 14:12 Eos % (Auto) 2.9 % 01/10/23 14:12 Baso % (Auto) 0.6 % 01/10/23 14:12 Neut # (Auto) 6.88 10^3/uL (1.8-7.7) 01/10/23 14:12 Lymph # (Auto) 4.5 10^3/uL (0.8-4.8) 01/10/23 14:12 [place] # (Auto) 0.7 10^3/uL (0.2-0.9) 01/10/23 14:12 Eos # (Auto) 0.4 10^3/uL (0.0-0.8) 01/10/23 14:12 Baso # (Auto) 0.1 10^3/uL (0.0-0.1) 01/10/23 14:12 Nucleated RBC % (auto) 0 % 01/10/23 14:12 Nucleated RBCs # 0.0 /100WBC 01/10/23 14:12 Sodium 136 mmol/L (136-145) 01/10/23 14:12 Potassium 4.1 mmol/L (3.5-5.1) 01/10/23 14:12 Chloride 103 mmol/L (98-107) 01/10/23 14:12 Carbon Dioxide 21 mmol/L (22-29) L 01/10/23 14:12 Anion Gap 16.1 (5-19) 01/10/23 14:12 BUN 15 mg/dL (6-20) 01/10/23 14:12 Creatinine 0.8 mg/dL (0.5-0.9) 01/10/23 14:12 GFR Calculation 73.7 mL/min (90-130) L 01/10/23 14:12 Glucose 188 mg/dL (65-115) H 01/10/23 14:12 Calculated Osmolality 288 mOsm/kg (285-295) 01/10/23 14:12 Calcium 9.2 mg/dL (8.5-10.5) 01/10/23 14:12 Total Bilirubin 0.2 mg/dL (0.15-1.2) 01/10/23 14:12 AST 21 U/L (0-32) 01/10/23 14:12 ALT 32 U/L (0-33) 01/10/23 14:12 Alkaline Phosphatase 75 U/L (35-105) 01/10/23 14:12 Total Protein 6.7 g/dL (6.6-8.7) 01/10/23 14:12 Albumin 4.4 g/dL (3.5-5.2) 01/10/23 14:12 Globulin 2.3 g/dL (1.3-4.6) 01/10/23 14:12 No radiology studies performed this visit Discharge Plan Discharge Patient Disposition: Home Clinical Impression: Bilateral leg weakness, Diabetic neuropathy, Pain in sacrum Condition: Stable Prescriptions: New pregabalin 75 mg capsule 75 mg PO BID Qty: 60 0RF Medrol (Ki) 4 mg tablets,dose pack See Rx Instructions .ROUTE .COMPLEX Qty: 21 0RF Rx Instructions: orally per package directions No Action cetirizine [All Day Allergy (cetirizine)] 10 mg tablet 10 mg PO DAILY PRN celecoxib 200 mg capsule 200 mg PO BID PRN (Reason: pain) Qty: 60 0RF doxepin 10 mg capsule 10 mg PO .q hs PRN (Reason: insomnia/chronic pain) Qty: 30 5RF (DME) Diabetic shoes with 3 sets of insoles See Rx Instructions .ROUTE .MEDSUPPLY Qty: 1 0RF Rx Instructions: With 3 pairs of inserts made by [employer] tramadol 50 mg tablet 50 mg PO BID PRN (Reason: pain) 30 Days Qty: 60 3RF omeprazole 20 mg capsule,delayed release(DR/EC) 20 mg PO DAILY PRN (Reason: acid reflux) Qty: 30 5RF albuterol sulfate 90 mcg/actuation HFA aerosol inhaler 2 puff inhalation Q6H PRN (Reason: shortness of breath or wheezing) Qty: 8.5 2RF atorvastatin 80 mg tablet 80 mg PO DAILY Qty: 30 5RF fenofibrate 160 mg tablet 160 mg PO DAILY Qty: 30 5RF ropinirole 0.5 mg tablet 0.5 mg PO .qhs Qty: 30 5RF diltiazem HCl 60 mg tablet See Rx Instructions .ROUTE .COMPLEX Qty: 90 1RF Dose Instruction: TAKE ONE TABLET BY MOUTH THREE TIMES A DAY FOR 30 DAYS Rx Instructions: TAKE ONE TABLET BY MOUTH THREE TIMES A DAY FOR 30 DAYS budesonide-formoterol [Symbicort] 160-4.5 mcg/actuation HFA aerosol inhaler 2 puff inhalation BID Qty: 10.2 1RF cyclobenzaprine 10 mg tablet 10 mg PO TID Qty: 90 3RF metformin 500 mg tablet 500 mg PO BID Qty: 60 5RF lisinopril 20 mg tablet See Rx Instructions .ROUTE .COMPLEX Qty: 90 1RF Dose Instruction: TAKE ONE TABLET BY MOUTH EVERY DAY Rx Instructions: TAKE ONE TABLET BY MOUTH EVERY DAY pregabalin 25 mg capsule 25 mg PO BID Qty: 60 2RF ondansetron 4 mg tablet,disintegrating 4 mg PO Q8H PRN (Reason: nausea and vomiting) Qty: 15 0RF Discharge Orders: Discharge ED (Routine); Ordered 01/10/23 Ordered By: Tomi Benitez Referrals: Cuco Viera MD [Primary Care Provider] - Discharge Diet: Usual diet Discharge Activity: Increase activity as tolerated Patient Instructions: Opioid Safety, Pain Management Activity Restrictions/Additional Instructions: Follow-up with your doctor as needed within the next 10 to 14 days. Coding Level of Care Code ED Cosmetic Account Coordinator for Vladislav Vazquez
== END 2023-01-10 15:50 | disposition home or self-care (01) ==
PROVIDERS: Emergency Medicine; Emergency Provider Family Medicine; PCP Family Medicine Adult Medicine
DX: E11.40 Type 2 diabetes mellitus with diabetic neuropathy, unspecified (principal); R53.1 Weakness; M54.50 Low back pain, unspecified; Z79.84 Long term (current) use of oral hypoglycemic drugs; Z72.0 Tobacco use; J44.9 Chronic obstructive pulmonary disease, unspecified; E78.5 Hyperlipidemia, unspecified; I10 Essential (primary) hypertension
CPT/HCPCS: 36415; 80053; 85025; 99283

== ENCOUNTER → 2023-08-03 08:40 | Outpatient (BNVA) | payer SELFPAY | PROVIDERS: PCP Family Medicine Adult Medicine; Visit Provider Family Medicine Adult Medicine | DX: I10 Essential (primary) hypertension (principal); E11.69 Type 2 diabetes mellitus with other specified complication; E78.5 Hyperlipidemia, unspecified; E11.42 Type 2 diabetes mellitus with diabetic polyneuropathy | CPT/HCPCS: 80053; 80061; 84443; 85025 ==

== ENCOUNTER → 2024-11-25 12:22 | Outpatient (BNVA) | payer SELFPAY | PROVIDERS: PCP Family Medicine; Visit Provider Family Medicine | DX: I10 Essential (primary) hypertension (principal); E11.42 Type 2 diabetes mellitus with diabetic polyneuropathy; E11.69 Type 2 diabetes mellitus with other specified complication; E78.5 Hyperlipidemia, unspecified | CPT/HCPCS: 80053; 80061; 82043; 83036; 84443 ==

== ENCOUNTER 2024-11-26 13:31 | Outpatient (CLI) | payer SELFPAY ==
--- NOTE | 2024-11-26 13:39 | XR_ITS ---
WS: [id number] Cervical spine, 3 views, 11/26/2024 Clinical Data: chronic neck pain Comparison: None. Findings: No compression fractures are seen. Disc narrowing exists at C5-C6 and C6-C7. There are anterior osteophytes C4-C7. There is no prevertebral soft tissue swelling. The odontoid is unremarkable. The soft tissues of the neck and the lung apices are normal. XR/XR cervical spine 3V* [id number] Impression: 1. Degenerative disc narrowing C5-C6 and C6-C7. 2. Anterior osteophytes C4-C7.
== END 2024-11-26 13:32 | disposition home or self-care (01) ==
PROVIDERS: PCP Family Medicine; Visit Provider Family Medicine
DX: M25.78 Osteophyte, vertebrae (principal); M54.2 Cervicalgia; G89.29 Other chronic pain
CPT/HCPCS: 72040

== ENCOUNTER 2024-12-09 07:02 | Outpatient (CLI) | payer SELFPAY ==
--- NOTE | 2024-12-09 07:15 | MR_ITS ---
WS: [id number] MRI CERVICAL SPINE NONCONTRAST HISTORY: chronic neck pain; DDD on x-rays COMPARISON: None available. Technique: Multiplanar, multisequence noncontrast imaging of the cervical spine. Motion artifact on several sequences. Slight straightening of the normal cervical lordosis. Small amount of marrow edema in the endplate of C6. Disc spaces are mildly narrowed. Vertebral body osteophytosis. Signal within the cervical cord is normal. Visualized posterior fossa is unremarkable. Craniocervical junction, C1 and C2 relationship, odontoid process and soft tissues are normal. C2-C3: Mild RIGHT foraminal stenosis. C3-C4: Diffuse disc bulging and osteophytic ridging. Central disc protrusion asymmetric to the LEFT. Mild central and LEFT foraminal stenosis. C4-C5: 2 mm anterolisthesis of C4. Diffuse osteophytic ridging and annular disc bulging. Mild central and bilateral foraminal stenosis. C5-C6: Diffuse osteophytic ridging and mild facet arthritis. Mild central and bilateral foraminal stenosis. C6-C7: Diffuse annular disc bulging with osteophytic ridging. Effacement of ventral CSF. Mild to moderate central and bilateral foraminal stenosis. Mild facet arthritis. C7-T1: Mild osteophytic ridging. Mild facet arthritis. Mild central and foraminal stenosis. Paraspinal soft tissues are limited by motion artifact on all sequences. MR/MR cervical spin wo con* [id number] IMPRESSION: 1. Study is limited by motion artifact on all sequences. 2. No high-grade central or foraminal stenosis. 3. Multilevel degenerative disc disease and facet arthritis and osteophytosis. 4. Mild to moderate central and bilateral foraminal stenosis at C6-7 predomina tely due to osteophytic ridging and facet arthritis. 5. Mild central and bilateral foraminal stenosis at C4-5, C5-6 and C7-T1. 6. Small central disc protrusion at C3-4. 7. Mild RIGHT foraminal stenosis at C2-3.
== END 2024-12-09 07:03 | disposition home or self-care (01) ==
LOC: RAD 07:06
PROVIDERS: PCP Family Medicine; Visit Provider Family Medicine
DX: G89.29 Other chronic pain (principal); M48.02 Spinal stenosis, cervical region; M43.02 Spondylolysis, cervical region; M50.21 Other cervical disc displacement, high cervical region; M47.812 Spondylosis without myelopathy or radiculopathy, cervical region; M50.323 Other cervical disc degeneration at C6-C7 level; M47.813 Spondylosis without myelopathy or radiculopathy, cervicothoracic region; M48.03 Spinal stenosis, cervicothoracic region
CPT/HCPCS: 72141

== ENCOUNTER 2024-12-12 16:02 | Outpatient (CLI) | payer SELFPAY ==
--- NOTE | 2024-12-12 16:15 | CT_ITS ---
WS: [id number] LDCT LUNG CANCER SCREENING TECHNIQUE: Noncontrast CT of the chest with coronal and sagittal reformatted images. CLINICAL INFORMATION: smoker, 42pk yr; screening COMPARISON: None. DLP: 53.20 mGy.cm DIvol: Mean CTDIvol: 0.90 (mGy) All CT scans at [facility] use at least one of these dose optimization techniques: automated exposure control; mA and/or kV adjustment per patient size (includes targeted exams where dose is matched to clinical indication); or iterative reconstruction. FINDINGS: Calcified granuloma RIGHT middle lobe. RIGHT suprahilar nodule measuring 7 mm. A few tiny surrounding satellite nodules. Recommend 3-month follow-up. Normal caliber thoracic aorta. Aortic calcification. Coronary calcification. No mediastinal or hilar lymphadenopathy. No axillary lymphadenopathy. Normal adrenal glands. Cholecystectomy clips. Splenic artery calcification. No axillary lymphadenopathy. CT/CT lung screening [id number] IMPRESSION: Slightly irregular RIGHT suprahilar nodule measuring 7 mm. Recommend 3-month f ollow-up. LUNG-RADS: 4A-Probably Suspicious FOLLOW UP: 3 Month LDCT
== END 2024-12-12 16:03 | disposition home or self-care (01) ==
LOC: RAD 16:02
PROVIDERS: PCP Family Medicine; Visit Provider Family Medicine
DX: F17.210 Nicotine dependence, cigarettes, uncomplicated (principal)
CPT/HCPCS: 71271

== ENCOUNTER 2025-02-24 07:55 | Outpatient (CLI) | payer SELFPAY ==
--- NOTE | 2025-02-24 08:00 | CT_ITS ---
WS: [id number] CT chest wo con [id number] HISTORY: R hilar 7mm node on LDCT TECHNIQUE: Axial imaging performed through the thorax. Coronal and sagittal reformats are submitted. All CT scans at [facility] use at least one of these dose optimization techniques: automated exposure control; mA and/or kV adjustment per patient size (includes targeted exams where dose is matched to clinical indication); or iterative reconstruction. CONTRAST: None DLP: 282.44 mGy.cm COMPARISON: 12/12/2024 Lungs and central airway: Mild pulmonary hyperexpansion. No change in the 5 mm noncalcified nodule RIGHT suprahilar region. This nodule is closely associated with the adjacent pulmonary vasculature. There are a few very tiny micronodule in the subpleural RIGHT upper lobe. 2 mm nodule along the superior RIGHT fissure. Pleura: Normal. No pleural effusion. Heart and pericardium: Normal size heart with no pericardial effusion. Mediastinum and sahil: No mediastinum or hilar adenopathy. Vessels: Moderate atherosclerosis aorta. No aneurysm. Normal size pulmonary artery. Chest wall and lower neck: No soft tissue masses. Upper abdomen: Suprarenal aortic calcifications. Variable attenuation within the lumen of the aorta consistent with associated thrombus. Prior cholecystectomy. Mild thickening of the LEFT adrenal gland. Osseous structures: No destructive process. CT/CT chest wo con [id number] IMPRESSION: 1. No change RIGHT suprahilar 5 mm noncalcified nodule since 12/12/2024. Recomm end continued follow-up. Chest CT recommended in 6 to 12 months. 2. No mediastinal or hilar adenopathy. 3. Atherosclerosis thoracic aorta and suprarenal aorta.
== END 2025-02-24 07:56 | disposition home or self-care (01) ==
LOC: RAD 07:56
PROVIDERS: PCP Family Medicine; Visit Provider Family Medicine
DX: R91.1 Solitary pulmonary nodule (principal); I70.0 Atherosclerosis of aorta; I74.09 Other arterial embolism and thrombosis of abdominal aorta; Z90.49 Acquired absence of other specified parts of digestive tract; E27.9 Disorder of adrenal gland, unspecified
CPT/HCPCS: 71250